=== PATIENT | male | born 1990 | race Caucasian/White ===

== ENCOUNTER 2021-10-30 18:16 | Emergency (ER) | payer SELFPAY ==
[2021-10-30] MEDS ORDERED: ClonazePAM 1 MG Tab PO STA (20:02)
[2021-10-30 20:25] LABS: CARBON DIOXIDE,CO2 27.3 mmol/L (21.0-32.0); POTASSIUM,K 3.4 mmol/L (3.5-5.1)
[2021-10-30 22:00] VITALS: BP 122/67; PULSE 78
== END 2021-10-30 21:37 ==
LOC: MW.ED 18:16
DX: F11.23 Opioid dependence with withdrawal (principal); Z20.822 Contact with and (suspected) exposure to COVID-19
CPT/HCPCS: 36415; 80053; 85025; 87635; 99284; A9270; U0002

== ENCOUNTER 2021-11-21 14:46 | Emergency (ER) | payer SELFPAY ==
[2021-11-21 14:52] VITALS: BP 139/70; PULSE 101
[2021-11-21] MEDS ORDERED: Sodium Chloride 0.9% 1,000 ML IV ONE (14:54)
[2021-11-21 15:26] LABS: BLOOD UREA NITROGEN,BUN 14 mg/dL (7.0-18.0); CARBON DIOXIDE,CO2 23.9 mmol/L (21.0-32.0); CHLORIDE,CL 109 mmol/L (98-107); GLUCOSE RANDOM 109 mg/dL (74-106); SODIUM,NA 142 mmol/L (136-148)
[2021-11-21 15:27] LABS: ESTIMATED GFR 91 mL/min (>60)
== END 2021-11-21 15:55 ==
LOC: MW.ED 14:46
DX: Z02.89 Encounter for other administrative examinations (principal)
CPT/HCPCS: 36415; 80053; 80307; 83605; 84443; 84484; 85025; 93005; 96360; 99284; J7030; 93010; 99282

== ENCOUNTER 2021-11-21 16:26 | Emergency (ER) | payer SELFPAY ==
[2021-11-21 16:40] VITALS: BP 135/85; PULSE 129
== END 2021-11-21 16:30 | disposition home or self-care (01) ==
LOC: MW.ED 16:26
DX: Z02.89 Encounter for other administrative examinations (principal)
CPT/HCPCS: 99282; 99283

== ENCOUNTER 2022-03-27 20:37 | Emergency (ER) | payer OTHER ==
[2022-03-27] MEDS ORDERED: Ibuprofen 400 MG Tab PO ONE (22:38)
[2022-03-27] MEDS ORDERED: Acetaminophen 325 MG Tab PO ONE (22:38)
[2022-03-28 00:13] VITALS: BP 110/70; PULSE 72
== END 2022-03-28 00:11 | disposition home or self-care (01) ==
LOC: MW.ED 20:37
DX: M25.512 Pain in left shoulder (principal)
CPT/HCPCS: 73030; 99283; A9270